=== PATIENT | female | born 1950 | race Caucasian/White ===

== ENCOUNTER 2017-06-08 07:49 | Inpatient (IN) | payer MEDICARE ==
[~2017-06-08] VITALS: Ht 160 cm; Wt 88.1 kg
[~2017-06-08 07:49] MED LIST: ALEN70TA5 PO; ATOR40TA PO; BUPIVACAINE/PF 0.5% ONE; EPINEPHRINE 1 MG/ML, 1ML ONE; GABA600T2 PO; GLYB5TAB3 PO; HYDR-3245 PO; HYDR25TA6 PO; IRON SUPPLEMENT PO; LISI-170 PO; METF10002 PO; SENN1TAB67 PO; SITA50TA PO; WARF5TAB7 PO
[2017-06-08] MEDS ORDERED: CEFAZOLIN 1,000 MG ONE ×2 (08:23→08:24)
[2017-06-08] MEDS ORDERED: DEXAMETHASONE 4 MG/ML, 1ML ONE ×2 (08:24)
[2017-06-08] MEDS ORDERED: MIDAZOLAM 1 MG/ML, 2ML ONE (08:24)
[2017-06-08] MEDS ORDERED: PROPOFOL 10 MG/ML, 20ML ONE (08:24)
[2017-06-08] MEDS ORDERED: ONDANSETRON 2MG/ML, 2ML ONE (08:24)
[2017-06-08] MEDS ORDERED: SUCCINYLCHOLINE 20 MG/ML, 10ML ONE (08:24)
[2017-06-08] MEDS ORDERED: FENTANYL PF 250 MCG/5ML ONE (08:25)
[2017-06-08] MEDS ORDERED: LACTATED RINGERS 1,000 ML IV SCH (08:26)
[2017-06-08 08:30] VITALS: BP 119/79
[2017-06-08] MEDS ORDERED: PHENYLEPHRINE 10 MG/ML ONE (09:11)
[2017-06-08] MEDS ORDERED: LABETALOL 5MG/ML, 20ML ONE (10:27)
[2017-06-08] MEDS ORDERED: ACETAMINOPHEN 325 MG TABLET PO PRN ×2 (11:00→20:00)
[2017-06-08] MEDS ORDERED: PROMETHAZINE 25 MG/ML, 1ML IV PRN (11:00)
[2017-06-08] MEDS ORDERED: FENTANYL PF 100 MCG/2ML IV PRN (11:00)
[2017-06-08] MEDS ORDERED: OXYcodone 5 MG/5 ML ORAL.SOL UDC PO PRN (11:00)
[2017-06-08 11:14] LABS: IOPTH BASELINE 48 pg/mL
[2017-06-08] MEDS ORDERED: OXYcodone 5 MG/5 ML ORAL.SOL UDC ONE (12:30)
[2017-06-08] MEDS ORDERED: HYDROcodone/APAP 7.5-325MG/15ML UDC ONE ×2 (13:15→18:09)
[2017-06-08] MEDS ORDERED: CALCIUM/VITAMIN D3 250-125 TABLET PO ONE (15:30)
[2017-06-08] MEDS: INSULIN REGULAR, HUMAN 100 UNIT/ML 3ML VIAL LOW DOSE SS SQ-INSULIN SCH ×2 (17:31→20:15)
[2017-06-08] MEDS ORDERED: OXYMETAZOLINE NASAL SPRAY 0.05%, 15ML NAS PRN (19:00)
[2017-06-08] MEDS ORDERED: ONDANSETRON 2MG/ML, 2ML IV PRN (20:00)
[2017-06-08] MEDS ORDERED: ACETAMINOPHEN 650 MG SUPP PR PRN (20:00)
[2017-06-08] MEDS ORDERED: hydrALAzine 20 MG/ML, 1ML IV PRN (20:00)
[2017-06-08] MEDS: CALCIUM CARBONATE 500 MG TAB.CHEW PO SCH (20:08)
[2017-06-08] MEDS: GABAPENTIN 400 MG CAPSULE PO SCH (20:14)
[2017-06-08] MEDS: CALCITRIOL 0.5 MCG CAPSULE PO SCH (20:14)
[2017-06-08] MEDS: SODIUM CHLORIDE FLUSH 10ML SYR IVF SCH (20:23)
[2017-06-08 20:27] VITALS: BP 132/76
[2017-06-08] MEDS ORDERED: ATORVASTATIN 40 MG TABLET PO SCH (21:00)
[2017-06-08] MEDS: POTASSIUM CHLORIDE 20 MEQ in D5%-0.45% NACL 1,000 ML IV SCH ×2 (22:00→22:33)
[2017-06-09 00:37] VITALS: BP 122/78
[2017-06-09 03:48] VITALS: BP 137/78
[2017-06-09] MEDS: CALCIUM CARBONATE 500 MG TAB.CHEW PO SCH ×3 (03:52→16:49)
[2017-06-09 05:10] LABS: PTH INTACT INTERPRETATION ** Comment **
[2017-06-09 06:33] LABS: PARATHYROID HORMONE INTACT < 2.5 pg/mL (14-72)
[2017-06-09 07:15] VITALS: BP 131/81
[2017-06-09] MEDS: INSULIN REGULAR, HUMAN 100 UNIT/ML 3ML VIAL LOW DOSE SS SQ-INSULIN SCH ×3 (08:00→16:49)
[2017-06-09] MEDS: SODIUM CHLORIDE FLUSH 10ML SYR IVF SCH (08:00)
[2017-06-09] MEDS: CALCITRIOL 0.5 MCG CAPSULE PO SCH (08:01)
[2017-06-09] MEDS: GABAPENTIN 400 MG CAPSULE PO SCH ×2 (08:01→16:49)
[2017-06-09] MEDS ORDERED: SITAGLIPTIN 50MG TABLET PO SCH (09:00)
[2017-06-09] MEDS ORDERED: LISINOPRIL 20 MG TABLET PO SCH (09:00)
[2017-06-09] MEDS ORDERED: SENNA/DOCUSATE TABLET PO SCH (09:00)
[2017-06-09] MEDS ORDERED: HYDROCHLOROTHIAZIDE 25 MG TABLET PO SCH (09:00)
[2017-06-09 13:26] VITALS: BP 121/80
[2017-06-09] MEDS: POTASSIUM CHLORIDE 20 MEQ in D5%-0.45% NACL 1,000 ML IV SCH (16:12)
[2017-06-09 19:22] VITALS: BP 121/70
[2017-06-10] MEDS ORDERED: SENNA/DOCUSATE TABLET PO SCH (09:00)
== END 2017-06-09 20:13 | disposition home or self-care (01) | DRG 626 ==
LOC: OUT 07:49 → 4NOR 18:57 → OUT 23:50 → 4NOR 23:52 → OBSVTOIN 06-09 11:11
PROVIDERS: ADMIT Surgery; ATTEND Surgery
PROC: 0GTN0ZZ Resection of Right Inferior Parathyroid Gland, Open Approach (ICD-10-PCS; 2017-06-08)
PROC: 4A11X4G Monitoring of Peripheral Nervous Electrical Activity, Intraoperative, External Approach (ICD-10-PCS; 2017-06-08)
PROC: 0GBP0ZZ Excision of Left Inferior Parathyroid Gland, Open Approach (ICD-10-PCS; 2017-06-08)
PROC: 0GTK0ZZ Resection of Thyroid Gland, Open Approach (ICD-10-PCS; principal; 2017-06-08 09:45)
DX: E05.20 Thyrotoxicosis with toxic multinodular goiter without thyrotoxic crisis or storm (principal); D68.9 Coagulation defect, unspecified; E21.3 Hyperparathyroidism, unspecified; M81.0 Age-related osteoporosis without current pathological fracture; E11.9 Type 2 diabetes mellitus without complications; Z95.2 Presence of prosthetic heart valve
CPT/HCPCS: 36415; 82310; 82962; 83970; 85610; 85730; 88305; 88307; 88331; 88332; G0378; J0171; J0690; J1100; J1815; J2250; J2405; J2704; J3010; J3480; J3490; C1760; J0330; J2370; J7120